=== PATIENT | female | born 1970 | race Caucasian/White ===

== ENCOUNTER 2016-10-01 22:52 | Inpatient (IN) | payer MEDICAID ==
[~2016-10-01] VITALS: Ht 170.2 cm; Wt 86.0 kg
--- OUTSIDE RECORDS SUMMARY | 2016-10-01 22:56 | XMS REPORT ---
Author Author [facility]. Organization [facility] Address [address] [place] [address] Phone [phone] Summary purpose CCDA Sent to [facility] Chief Complaint and Reason for Visit No authorized Reason for Visit (Admitting Diagnosis) is available for this visit. Problem list Condition Status Certainty Chronicity Onset .Asthma Discharged Encounters The following conditions tracked for encounter diagnoses were recorded for this visit: Finding or Diagnosis Status Certainty Chronicity Onset .Asthma Discharged Medications Home Medications Medication Directions Started Status Source albuterol 90 mcg/actuation aerosol inhaler 1-2 inhalation inhl See medication notes xpath-functions" xmlns:xs="http://www.Kidaro.org/2000/XMLSchema" />1-2 puffs q 4-6 hrs prn Current DuoNeb 0.5 mg-3 mg(2.5 mg base)/3 mL solution for nebulization 1 inhalation inhl See medication notes xpath-functions" xmlns:xs="http://www.Kidaro.org/2000/XMLSchema" />one dose per nebulizer q 4 hrs prn Current albuterol 90 mcg/actuation aerosol inhaler inhl As needed xpath-functions" xmlns:xs="http://www.Kidaro.org/2000/XMLSchema" />1-2 puffs q 4-6 hrs prn Discont DuoNeb 0.5 mg-3 mg(2.5 mg base)/3 mL solution for nebulization inhl As needed xpath-functions" xmlns:xs="http://www.Kidaro.org/2000/XMLSchema" />one dose per nebulizer q 4 hrs prn Discont Breo Ellipta 100 mcg-25 mcg/dose powder for inhalation 1 puff inhl -Daily Current predniSONE 10 mg tablet 6 tablet oral See medication notes xpath-functions" xmlns:xs="http://www.Kidaro.org/2000/XMLSchema" />for four days Current predniSONE 10 mg tablet 4 tablet oral -Daily xpath-functions" xmlns:xs="http://www.Kidaro.org/XMLSchema" />for 4 days Current predniSONE 10 mg tablet 3 tablet oral -Daily xpath-functions" xmlns:xs="http://www.Kidaro.org/XMLSchema" />take for 4 days Current predniSONE 10 mg tablet 2 tablet oral -Daily xpath-functions" xmlns:xs="http://www.Kidaro.org/XMLSchema" />for four days Current predniSONE 10 mg tablet 1 tablet oral -Daily xpath-functions" xmlns:xs="http://www.Kidaro.org/XMLSchema" />for 4 days then stop. Take with breakfast Current Allergies, adverse reactions, alerts Allergen Category Ingredient Status Reaction Severity Onset No Allergy Information Available Drug No Allergy Information Available Inactive No Known Drug Allergy No Known Drug Allergy No Known Drug Allergy Active No Known Food Allergy No Known Food Allergy No Known Food Allergy Active Immunizations No immunizations recorded for this patient visit Relevant diagnostic tests and/or laboratory data RESULTS [id number]:55:00 Discharge Summary Pt admitted with refractory asthma - responded to IV solumedrol and albuterol, slowly improving over two days. She was changed to po prednisone, and on the day of discharge, had been weaned off of O2, maintaining sats in the 90's % on RA. She was ambulatory without resp distress. She had only a few wheezes on rt lung. Requested dismissal, and was dismissed to home - see instructions. CBC [id number]:45:00 Result Normal Range Units WBC HC 32.86 4.8-10.8 x103/mm3 Result Amended on 2015-06-01 at 15:47:42. Previous status was FR. CALLED TO A[facility]H 06/01/15 07:10 MAC Neutrophil % HC 93.7 50-70 % Result Amended on 2015-06-01 at 15:47:43. Previous status was FR. CALLED TO ASH[place]OSH 06/01/15 07:10 MAC Lymph % L 3.6 20-50 % Result Amended on 2015-06-01 at 15:47:43. Previous status was FR. [place] % 2.6 1.0-9.0 % Result Amended on 2015-06-01 at 15:47:43. Previous status was FR. Eosinophil % 0.0 0-4 % Result Amended on 2015-06-01 at 15:47:43. Previous status was FR. Basophil % 0.1 0-2 % Result Amended on 2015-06-01 at 15:47:43. Previous status was FR. Neutrophil # H 30.82 3.0-7.0 x103/mm3 Result Amended on 2015-06-01 at 15:47:43. Previous status was FR. Lymph # 1.17 1.0-4.0 x103/mm3 Result Amended on 2015-06-01 at 15:47:43. Previous status was FR. [place] # H 0.84 0.0-0.8 x103/mm3 Result Amended on 2015-06-01 at 15:47:43. Previous status was FR. Eosinophil # 0.00 0-0.5 x103/mm3 Result Amended on 2015-06-01 at 15:47:43. Previous status was FR. Basophil # 0.03 0-0.2 x103/mm3 Result Amended on 2015-06-01 at 15:47:43. Previous status was FR. RBC 5.00 4.20-5.40 x103/mm3 Result Amended on 2015-06-01 at 15:47:43. Previous status was FR. HGB 14.7 12.0-16.0 g/dl Result Amended on 2015-06-01 at 15:47:43. Previous status was FR. HCT 44.4 37.0-47.0 % Result Amended on 2015-06-01 at 15:47:43. Previous status was FR. MCV 88.8 81-99 FL Result Amended on 2015-06-01 at 15:47:43. Previous status was FR. MCH 29.4 27.0-31.0 pg Result Amended on 2015-06-01 at 15:47:43. Previous status was FR. MCHC 33.1 32.0-36.0 g/dl Result Amended on 2015-06-01 at 15:47:43. Previous status was FR. RDW 14.2 12-15 % Result Amended on 2015-06-01 at 15:47:43. Previous status was FR. Platelet 363 150-400 x103/mm3 Result Amended on 2015-06-01 at 15:47:44. Previous status was FR. MPV 9.7 6.0-10.0 FL Result Amended on 2015-06-01 at 15:47:44. Previous status was FR. :30:00 WBC HC 27.85 CALLED TO CELESTINE AT 07;55 05-31-15 BY LAD Neutrophil % HC 97.8 CALLED TO CELESTINE AT 07;55 05-31-15 BY LAD Lymph % L 1.6 [place] % L 0.5 Eosinophil % 0.0 Basophil % 0.1 Neutrophil # H 27.23 Lymph # L 0.45 [place] # 0.13 Eosinophil # 0.01 Basophil # 0.03 RBC 5.35 HGB 15.7 HCT 46.1 MCV 86.2 MCH 29.3 MCHC 34.1 RDW 13.8 Platelet 370 MPV 9.5 :25:00 WBC HC 16.61 CALLED TO [facility] AT [id number] BY LAD Neutrophil % HC 94.5 CALLED TO [facility] AT [id number] BY LAD Lymph % L 3.6 [place] % 1.0 Eosinophil % 0.7 Basophil % 0.2 Neutrophil # H 15.71 Lymph # L 0.59 [place] # 0.16 Eosinophil # 0.12 Basophil # 0.03 RBC H 5.44 HGB 15.8 HCT H 47.1 MCV 86.6 MCH 29.0 MCHC 33.5 RDW 14.1 Platelet 361 MPV 9.3 Manual Differential :45:00 Seg 90.0 Lymph 5.0 [place] 3.0 Bands 2.0 :25:00 Seg 90.0 Lymph 4.0 Bands 6.0 Chemistry Group :45:00 Sodium 136 Potassium 4.5 Chloride 101 CO2 29 Glucose H 148 BUN 16 Creatinine L .6 Calcium 9.6 :30:00 Sodium 135 Potassium 4.0 Chloride 102 CO2 24 Glucose H 168 BUN 9 Creatinine L .6 Calcium 9.3 :25:00 Sodium 139 Potassium 4.2 Chloride 103 CO2 24 Glucose H 152 BUN L 6 Creatinine L .6 Total Protein 7.2 Albumin 4.2 Calcium 9.5 Alk Phos 98 AST 21 ALT 41 T Bili .8 A/G Ratio 1.4 History of procedures No procedures recorded for this patient visit. Functional status Functional Status Finding Observation Time Dexterity Right-handed :41 Weight Bearing Statu Full :45 Transferring/Ambulat Independent :41 Bathing Independent :41 Dressing Independent :41 Eating Independent :41 Drinking Independent :41 Toileting Independent :41 Able to Turn Self in Independent :41 Stairs Independent :41 Cognitive Status Finding Observation Time Level of Consciousne Alert :14 Oriented to Person Yes :[address] Yes :14 Oriented to Time Yes :14 Vital signs Type Value Date Respirations 20 :41 Pulse 109 :41 O2 Saturation 92% :41 Systolic Blood Press 119mm/HG :41 Diastolic Blood Pres 83mm/HG :41 Temperature (Fahr) 98.2Degrees :41 Height 67in :41 Weight 185.6LB :41 Social history Type Value Smoking Status CURRENT EVERY DAY SMOKER Treatment Plan Treatment Plan at Dismissed to home - to cont prednisone taper, and cont duoneg, albuterol prn, xpath-functions" xmlns:xs="http://[email or web address].org/2000/Aetel.inc (Droppy)LSchema" />and breo ellipta. She was to start Prilosec as well. F/U in clinic nest week, xpath-functions" xmlns:xs="http://www.Kidaro.org/2000/XMLSchema" />bring peak flow record. Hospital discharge instructions Diet no restrictions Activity Level as tolerated Personal Items Retur none received Med Dispensed by Pro none Follow up with [facility] Appointment Date and 06/07/15 0830 Other Instructions stop smoking, have no cats in the house, do not play with cats, do peak flow before and after aersol treatment each morning, and keep record of results, bring these results to next dr finch. Return or call for any return, increased, or new symptoms, espicially if wheezing returns.
--- OUTSIDE RECORDS SUMMARY | 2016-10-01 22:56 | XMS REPORT ---
Author Author [facility]. Organization [facility] Address [address] [place] [address] Phone [phone] Summary purpose CCDA Sent to [facility] Chief Complaint and Reason for Visit No authorized Reason for Visit (Admitting Diagnosis) is available for this visit. Problem list Condition Status Certainty Chronicity Onset .Asthma Active Encounters The following conditions tracked for encounter diagnoses were recorded for this visit: Finding or Diagnosis Status Certainty Chronicity Onset .Asthma Active Medications Home Medications Medication Directions Started Status Source albuterol (refill) 90 mcg/actuation aerosol inhaler 1 puff inhl As needed Current Allergies, adverse reactions, alerts Allergen Category Ingredient Status Reaction Severity Onset No Allergy Information Available Drug No Allergy Information Available Inactive No Known Drug Allergy No Known Drug Allergy No Known Drug Allergy Active Immunizations No immunizations recorded for this patient visit Relevant diagnostic tests and/or laboratory data No authorized results are available for this patient visit History of procedures No procedures recorded for this patient visit. Functional status Functional Status Finding Observation Time Weight Bearing Statu Full [id number]:58 Transferring/Ambulat Independent 22-42-613598:55 Eating Independent 19-51-958320:55 Drinking Independent 46-72-012726:55 Cognitive Status Finding Observation Time Level of Consciousne Alert :24 Oriented to Person Yes :[address] Yes [id number]:24 Oriented to Time Yes :24 Vital signs Type Value Date Respirations 24 :26 Pulse 106 :26 O2 Saturation 92% :26 Systolic Blood Press 135mm/HG :26 Diastolic Blood Pres 90mm/HG :26 Temperature (Fahr) 98.1Degrees :26 Height 67in :25 Weight 178.7LB 72-54-082585:25 Social history Type Value Smoking Status CURRENT EVERY DAY SMOKER Treatment Plan No treatment plan text is available for this visit. Hospital discharge instructions Diagnosis Status Asthmaticus Diet As tolerated, no restrictions Activity Level As tolerated Med Dispensed by Pro Prednisone 60mg daily Flu Vaccine Given Pt Refused (specify) Follow up with Dr. Yi Appointment Date and 1 week
--- OUTSIDE RECORDS SUMMARY | 2016-10-01 22:56 | XMS REPORT | Continuity of Care Document ---
Author Author [facility] Organization [facility] Address Unknown Phone Unavailable Allergies Active Description Code Type Severity Reaction Onset Reported/Identified Relationship to Patient Clinical Status Yes No Allergy Information Available 143 Drug Allergy N/A N/A 08/07/2013 Confirmed but inactive Yes No Known Allergies [id number] Drug Allergy N/A N/A 03/19/2014 Confirmed but inactive Yes No Known Drug Allergy [id number] ND N/A N/A 08/16/2014 Confirmed or Verified Yes No Known Food Allergy NO KNOWN FOOD ALLERG NF N/A N/A 05/30/2015 Confirmed or Verified Medications Problems Date Dx Coded Attending Type Code Diagnosis Diagnosed By 08/07/2013 ASHVIN FAUSTIN, ALEC Sullivan 486 PNEUMONIA, ORGANISM NOS 03/21/2014 ISAIAH GRAJEDA MD, ROGELIO Sullivan 493.92 ASTHMA, UNSPECIFIED, WIT 08/18/2014 PATRICK SAM MD 493.01 EXT ASTHMA W STATUS ASTH 08/18/2014 PATRICK SAM MD 493.90 ASTHMA, UNSPECIFIED 08/18/2014 PATRICK SAM MD 799.02 HYPOXEMIA 12/10/2014 JOSH MARQUEZ MD 289.0 SECONDARY POLYCYTHEMIA 12/10/2014 JOSH MARQUEZ MD 305.1 TOBACCO USE DISORDER 12/10/2014 JOSH MARQUEZ MD 493.01 EXT ASTHMA W STATUS ASTH 12/10/2014 JOSH MARQUEZ MD 799.02 HYPOXEMIA 12/10/2014 JOSH MARQUEZ MD V65.49 OTH SPECIFIED COUNSELING 06/01/2015 JOSH MARQUEZ MD J44.9 Chronic obstructive pulmonary disease, unspecified 06/01/2015 JOSH MARQUEZ MD J45.909 Unspecified asthma, uncomplicated 06/01/2015 JOSH MARQUEZ MD K21.9 Gastro-esophageal reflux disease without esophagitis 06/01/2015 JOSH MARQUEZ MD Z71.6 Tobacco abuse counseling 06/01/2015 JOSH MARQUEZ MD Z72.0 Tobacco use Procedures Code Description [place] [address] CHEST X-RAY ALEC LOCK MD 08/07/2013 09034 EMERGENCY DEPT VISIT ALEC LOCK MD 08/07/2013 65053 THER/PROPH/DIAG IV INF, INIT FLACO FAUSTIN, [facility] [place] 08/16/2014 93410 TX/PROPH/DG ADDL SEQ IV INF FLACO FAUSTIN, [facility] 08/16/2014 16258 TX/PRO/DX INJ NEW DRUG MENDELON FLACO FAUSTIN, [facility] 08/16/2014 13002 EMERGENCY DEPT VISIT FLACO FAUSTIN [facility] [place] 08/16/2014 G0378 HOSPITAL OBSERVATION PER HR FLACO FAUSTIN, [facility] 08/16/2014 02353 THER/PROPH/DIAG IV INF MENDELON FLACO FAUSTIN, [facility] 08/17/2014 60183 TX/PRO/DX INJ NEW DRUG FRAME NAILEREDUARDO SAM MD, [facility] 08/17/2014 J0696 CEFTRIAXONE SODIUM INJECTION FLACO FAUSTIN, [facility] 08/17/2014 J2930 METHYLPREDNISOLONE INJECTION FLACO FAUSTIN, [facility] 08/17/2014 J3475 MAG INJECTION FLACO FAUSTIN, [facility] 08/17/2014 J7050 NS SOLUTION 250 CC INFUSION FLACO FAUSTIN, [facility] 08/17/2014 Results Test Result Range CBC - 03/19/14 09:45 Eos # 0.14 x10^3 0-0.5 Eos % 1.0 % 0-4 HCT 45.3 % 37.0-47.0 HGB 15.7 G/DL 12.0-16.0 Lymph 3.0 Lymph # 0.51 x10^3 1.0-4.0 Lymph % 3.6 % 20-50 MCH 30.4 PG 27.0-31.0 MCHC 34.7 G/DL 32.0-36.0 MCV 87.8 FL 81-[address] [place] [address] [place] # 0.14 x10^3 0.0-0.8 [place] % 1.0 % 1.0-9.0 MPV 9.6 FL 6.0-10.0 Platelet 314 x10^3 150-400 RBC 5.16 x10^3 4.20-5.40 RDW 13.5 % 12-15 Seg 81.0 WBC 14.18 x10^3 4.8-10.8 Bands 13.0 Baso # 0.02 x10^3 0-0.2 Baso % 0.1 % 0-2 Neut % 94.3 % 50-70 Neut # 13.37 x10^3 3.0-7.0 Comprehensive Metabolic Panel - 03/19/14 09:45 Sodium 138 MMOLL 134-145 Potassium 3.3 MMOLL 3.6-5.0 Chloride 100 MMOLL 98-107 CO2 22 MMOLL 22-30 Glucose 204 MG/DL 75-110 BUN 5 MG/DL 9-20 Creatinine .6 MG/DL 0.8-1.7 Calcium 9.0 MG/DL 8.4-10.2 T Bili .6 MG/DL 0.2-1.3 T. Protein 7.6 G/DL 6.3-8.2 A/G Ratio 1.3 RATIO Albumin 4.3 G/DL 3.5-5.0 Alk Phos 75 U/L 38-126 ALT 28 U/L 11-66 AST 25 U/L 14-36 CBC - 12/09/14 19:21 Eos # 0.80 x10^3 0-0.5 Eos % 7.5 % 0-4 HCT 50.8 % 37.0-47.0 HGB 17.6 G/DL 12.0-16.0 Lymph # 2.03 x10^3 1.0-4.0 Lymph % 19.1 % 20-50 MCH 30.2 PG 27.0-31.0 MCHC 34.6 G/DL 32.0-36.0 MCV 87.3 FL 81-99 [place] # 0.60 x10^3 0.0-0.8 [place] % 5.6 % 1.0-9.0 MPV 9.7 FL 6.0-10.0 Platelet 396 x10^3 150-400 RBC 5.82 x10^3 4.20-5.40 RDW 13.5 % 12-15 WBC 10.63 x10^3 4.8-10.8 Baso # 0.08 x10^3 0-0.2 Baso % 0.8 % 0-2 Neut % 67.0 % 50-70 Neut # 7.12 x10^3 3.0-7.0 Basic Metabolic Panel - 12/09/14 19:21 Sodium 138 MMOLL 134-145 Potassium 4.3 MMOLL 3.6-5.0 Chloride 103 MMOLL 98-107 CO2 20 MMOLL 22-30 Glucose 128 MG/DL 75-110 BUN 9 MG/DL 9-20 Creatinine .7 MG/DL 0.8-1.7 Calcium 9.8 MG/DL 8.4-10.2 CBC - 05/30/15 17:47 Eos # 0.12 x10^3 0-0.5 Eos % 0.7 % 0-4 HCT 47.1 % 37.0-47.0 HGB 15.8 G/DL 12.0-16.0 Lymph 4.0 Lymph # 0.59 x10^3 1.0-4.0 Lymph % 3.6 % 20-50 MCH 29.0 PG 27.0-31.0 MCHC 33.5 G/DL 32.0-36.0 MCV 86.6 FL 81-99 [place] # 0.16 x10^3 0.0-0.8 [place] % 1.0 % 1.0-9.0 MPV 9.3 FL 6.0-10.0 Platelet 361 x10^3 150-400 RBC 5.44 x10^3 4.20-5.40 RDW 14.1 % 12-15 Seg 90.0 WBC 16.61 x10^3 4.8-10.8 Bands 6.0 Baso # 0.03 x10^3 0-0.2 Baso % 0.2 % 0-2 Neut % 94.5 % 50-70 Neut # 15.71 x10^3 3.0-7.0 Comprehensive Metabolic Panel - 05/30/15 17:47 Sodium 139 MMOLL 134-145 Potassium 4.2 MMOLL 3.6-5.0 Chloride 103 MMOLL 98-107 CO2 24 MMOLL 22-30 Glucose 152 MG/DL 75-110 BUN 6 MG/DL 9-20 Creatinine .6 MG/DL 0.8-1.7 Calcium 9.5 MG/DL 8.4-10.2 T Bili .8 MG/DL 0.2-1.3 T. Protein 7.2 G/DL 6.3-8.2 A/G Ratio 1.4 RATIO Albumin 4.2 G/DL 3.5-5.0 Alk Phos 98 U/L 38-126 ALT 41 U/L 11-66 AST 21 U/L 14-36 Basic Metabolic Panel - 05/31/15 07:53 Sodium 135 MMOLL 134-145 Potassium 4.0 MMOLL 3.6-5.0 Chloride 102 MMOLL 98-107 CO2 24 MMOLL 22-30 Glucose 168 MG/DL 75-110 BUN 9 MG/DL 9-20 Creatinine .6 MG/DL 0.8-1.7 Calcium 9.3 MG/DL 8.4-10.2 CBC - 05/31/15 07:55 Eos # 0.01 x10^3 0-0.5 Eos % 0.0 % 0-4 HCT 46.1 % 37.0-47.0 HGB 15.7 G/DL 12.0-16.0 Lymph # 0.45 x10^3 1.0-4.0 Lymph % 1.6 % 20-50 MCH 29.3 PG 27.0-31.0 MCHC 34.1 G/DL 32.0-36.0 MCV 86.2 FL 81-99 [place] # 0.13 x10^3 0.0-0.8 [place] % 0.5 % 1.0-9.0 MPV 9.5 FL 6.0-10.0 Platelet 370 x10^3 150-400 RBC 5.35 x10^3 4.20-5.40 RDW 13.8 % 12-15 WBC 27.85 x10^3 4.8-10.8 Baso # 0.03 x10^3 0-0.2 Baso % 0.1 % 0-2 Neut % 97.8 % 50-70 Neut # 27.23 x10^3 3.0-7.0 CBC - 06/01/15 07:45 Eos # 0.00 x10^3 0-0.5 Eos % 0.0 % 0-4 HCT 44.4 % 37.0-47.0 HGB 14.7 G/DL 12.0-16.0 Lymph 5.0 Lymph # 1.17 x10^3 1.0-4.0 Lymph % 3.6 % 20-50 MCH 29.4 PG 27.0-31.0 MCHC 33.1 G/DL 32.0-36.0 MCV 88.8 FL 81-[address] [place] [address] [place] # 0.84 x10^3 0.0-0.8 [place] % 2.6 % 1.0-9.0 MPV 9.7 FL 6.0-10.0 Platelet 363 x10^3 150-400 RBC 5.00 x10^3 4.20-5.40 RDW 14.2 % 12-15 Seg 90.0 WBC 32.86 x10^3 4.8-10.8 Bands 2.0 Baso # 0.03 x10^3 0-0.2 Baso % 0.1 % 0-2 Neut % 93.7 % 50-70 Neut # 30.82 x10^3 3.0-7.0 Basic Metabolic Panel - 06/01/15 07:23 Sodium 136 MMOLL 134-145 Potassium 4.5 MMOLL 3.6-5.0 Chloride 101 MMOLL 98-107 CO2 29 MMOLL 22-30 Glucose 148 MG/DL 75-110 BUN 16 MG/DL 9-20 Creatinine .6 MG/DL 0.8-1.7 Calcium 9.6 MG/DL 8.4-10.2 Encounters ACCT No. Visit Date/Time Discharge Status Pt. Type Provider Facility Loc./Unit Complaint [id number] 05/30/2015 17:07:00 06/01/2015 20:45:00 DIS Inpatient JIMMY FAUSTIN, [facility] NS1 [id number] 12/09/2014 19:02:00 12/10/2014 00:42:00 DIS Inpatient JIMMY FAUSTIN, [facility] NS1 [id number] 08/16/2014 22:40:00 08/18/2014 13:39:00 DIS Outpatient FLACO FAUSTIN, PATRICK [facility] NS1 [id number] 03/20/2014 14:57:00 03/21/2014 14:00:00 DIS Inpatient ISAIAH GRAJEDA MD, [facility] NS1 [id number] 08/07/2013 16:23:00 08/07/2013 18:04:00 DIS Emergency ASHVIN FAUSTIN, [facility] ER
--- OUTSIDE RECORDS SUMMARY | 2016-10-01 22:56 | XMS REPORT ---
Author Author [facility]. Organization [facility] Address [address] [place] [address] Phone [phone] Summary purpose CCDA Sent to [facility] Chief Complaint and Reason for Visit Admit Diagnosis 1 EXT ASTHMA W STATUS ASTH Problem list Condition Status Certainty Chronicity Onset .Asthma Resolved Encounters The following conditions tracked for encounter diagnoses were recorded for this visit: Finding or Diagnosis Status Certainty Chronicity Onset .Asthma Resolved Medications Home Medications Medication Directions Started Status Source albuterol 90 mcg/actuation aerosol inhaler inhl As needed xpath-functions" xmlns:xs="http://www.[employer] Wave Technologiesorg/2000/EltechsLSchema" />1-2 puffs q 4-6 hrs prn Current DuoNeb 0.5 mg-3 mg(2.5 mg base)/3 mL solution for nebulization inhl As needed xpath-functions" xmlns:xs="http://www.[employer] Wave [employer]org/2000/EltechsLSchema" />one dose per nebulizer q 4 hrs prn Current Allergies, adverse reactions, alerts Allergen Category Ingredient Status Reaction Severity Onset No Allergy Information Available Drug No Allergy Information Available Inactive No Known Drug Allergy No Known Drug Allergy No Known Drug Allergy Active Immunizations No immunizations recorded for this patient visit Relevant diagnostic tests and/or laboratory data RESULTS :54:00 Discharge Summary Patient was improved and able to maintain O2sats in the 90's without oxygen. :45:00 Discharge Summary Admitted with hypoxia and status asthmaticus - requiring 4 lpm O2, and repeat albuterol aerosol tx, and IV solumedrol. Pt adamant about dismissal on second evening due to costs - improving. Reviwed disease process, smoking etiology and / worsening of asthma and COPD, as well as polycythemia, and risk for progression to O2 dependency, disability, and . Pt agrees to smoking cessation. Agrees to outpt f/u, as well as self peak flow monitoring. Dismissed - see instructions. CBC :50:00 Result Normal Range Units WBC 10.63 4.8-10.8 x103/mm3 Neutrophil % 67.0 50-70 % Lymph % L 19.1 20-50 % [place] % 5.6 1.0-9.0 % Eosinophil % H 7.5 0-4 % Basophil % 0.8 0-2 % Neutrophil # H 7.12 3.0-7.0 x103/mm3 Lymph # 2.03 1.0-4.0 x103/mm3 [place] # 0.60 0.0-0.8 x103/mm3 Eosinophil # H 0.80 0-0.5 x103/mm3 Basophil # 0.08 0-0.2 x103/mm3 RBC H 5.82 4.20-5.40 x103/mm3 HGB H 17.6 12.0-16.0 g/dl HCT H 50.8 37.0-47.0 % MCV 87.3 81-99 FL MCH 30.2 27.0-31.0 pg MCHC 34.6 32.0-36.0 g/dl RDW 13.5 12-15 % Platelet 396 150-400 x103/mm3 MPV 9.7 6.0-10.0 FL Chemistry Group :50:00 Result Normal Range Units Sodium 138 134-145 mmol/L Potassium 4.3 3.6-5.0 mmol/L Chloride 103 98-107 mmol/L CO2 L 20 22-30 mmol/L Glucose H 128 75-110 mg/dl BUN 9 9-20 mg/dl Creatinine L .7 0.8-1.7 mg/dl Calcium 9.8 8.4-10.2 mg/dl History of procedures No procedures recorded for this patient visit. Functional status Functional Status Finding Observation Time Weight Bearing Statu Full :23 Transferring/Ambulat Independent :09 Eating Independent :09 Drinking Independent :09 Toileting Independent :09 Able to Turn Self in Independent :09 Cognitive Status Finding Observation Time Level of Consciousne Alert :40 Oriented to Person Yes :[address] Yes :40 Oriented to Time Yes :40 Eyes - ROSIE Yes :45 Vital signs Type Value Date Respirations 24 :43 Pulse 108 :43 O2 Saturation 92% :43 Systolic Blood Press 131mm/HG :43 Diastolic Blood Pres 82mm/HG :43 Temperature (Fahr) 98.8Degrees :43 Height 67in :16 Weight 178.2LB :16 Social history Type Value Smoking Status CURRENT EVERY DAY SMOKER Treatment Plan Treatment Plan at Patient desires to return to her home tonight. Instructions given for aerosol xpath-functions" xmlns:xs="http://www.[employer]org/2000/XMLSchema" />treatments and Prednisone dose pack by Dr. Bobby, and a written plan of care was xpath-functions" xmlns:xs="http://www.[employer].org/2000/XMLSchema" />given to patient. Hospital discharge instructions Diagnosis Asthma Diet No restrictions Activity Level As tolerated Personal Items Retur None Med Dispensed by Pro None Follow up with Dr. Bobby Appointment Date and December 16 @ 1:30 Other Instructions STOP SMOKING. Have no cats in the house, and do not play with cats. Do peak flow before and after aerosol treatment each morning, and keep record of results. Bring record to your appt. Call or return for any return, increased, or new symptoms, especially if wheezing returns. Go to the Clinic for lab on December 15 for H&H. You will need further evaluation of your lungs and of your elevated hemoglobin. Do not fail to have these further evaluated.
--- OUTSIDE RECORDS SUMMARY | 2016-10-01 22:56 | XMS REPORT ---
Author Author [facility]. Organization [facility] Address [address] [place] [address] Phone [phone] Summary purpose CCDA Sent to [facility] Chief Complaint and Reason for Visit Admit Diagnosis 1 ASTHMA, UNSPECIFIED Problem list Condition Status Certainty Chronicity Onset [...] for this patient visit History of procedures Procedure Code Code Type Description Date Performed Performing Physician G0378 CPT-4 HOSPITAL OBSERVATION PER HR 08-16-2014 PATRICK SAM 64328 CPT-4 EMERGENCY DEPT VISIT 08-16-2014 PATRICK SAM J2930 CPT-4 METHYLPREDNISOLONE INJECTION 08-17-2014 PATRICK SAM J0696 CPT-4 CEFTRIAXONE SODIUM INJECTION 08-17-2014 PATRICK SAM J7050 CPT-4 NS SOLUTION 250 CC INFUSION 08-17-2014 PATRICK SAM J3475 CPT-4 MAG INJECTION 08-17-2014 PATRICK SAM J2930 CPT-4 METHYLPREDNISOLONE INJECTION 08-17-2014 PATRICK SAM 19031 CPT-4 THER/PROPH/DIAG IV INF, INIT 08-16-2014 PATRICK SAM 27822 CPT-4 THER/PROPH/DIAG IV INF ADDON 08-17-2014 PATRICK SAM 31132 CPT-4 TX/PROPH/DG ADDL SEQ IV INF 08-16-2014 PATRICK SAM 06932 CPT-4 TX/PRO/DX INJ NEW DRUG ADDON 08-16-2014 PATRICK SAM 61512 CPT-4 TX/PRO/DX INJ NEW DRUG FIELD MACHINIST 08-17-2014 PATRICK SAM Functional status Functional Status Finding Observation Time Weight Bearing Statu Full [id number]:58 Transferring/Ambulat Independent 40-65-015114:55 Eating Independent 93-05-304697:55 Drinking Independent 12-03-922670:55 Cognitive Status Finding Observation Time Level of Consciousne Alert :24 Oriented to Person Yes :[address] Yes :24 Oriented to Time Yes :24 Vital signs Type Value Date Respirations 24 :26 Pulse 106 :26 O2 Saturation 92% :26 Systolic Blood Press 135mm/HG :26 Diastolic Blood Pres 90mm/HG :26 Temperature (Fahr) 98.1Degrees :26 Height 67in :25 Weight 178.7LB 18-06-911326:25 Social history Type Value Smoking Status CURRENT [...]
--- NOTE | 2016-10-01 23:11 | NUR ---
RESP RT STAFF IN ROOM ADMINISTERING DUONEB
[2016-10-01] MEDS ORDERED: ALBUTEROL/IPRATROPIUM INHAL. 2.5mg-0.5mg/3ml Neb. AEROSOL ONE ×2 (23:15→23:45)
[2016-10-01] MEDS ORDERED: BRIO INH (23:18)
--- NOTE | 2016-10-01 23:20 | ERPDOC ---
Departure Disposition Decision Date: Oct 02, 2016 Disposition Decision Time: 02:15 Disposition: 02 TO [facility] Impression Impression Impression: Primary Impression: Asthma exacerbation Additional Impression: Hypoxemia requiring supplemental oxygen Severity: Moderate Condition: Stable Seen By: Physician only Problems/Meds/Labs Reviewed?: Yes Medications reviewed and manag: Yes Follow up care ordered?: Yes Mental Status: Alert, Oriented HPI - Respiratory General General Chief Complaint: Dyspnea/Respdistress Stated Complaint: TROUBLE BREATHING,HEAD HURTS Time Seen by Provider: 23:19 Source: patient Exam Limitations: no limitations HPI - Respiratory General Initial Comments Patient is a 46-year-old female presents emergency room for evaluation of headache, difficulty breathing. Patient does have a history of asthma and is on one daily control medication 1 week week ago had no need for rescue inhaler. Patient for the past 2 days has had cough shortness of breath, body aches headache. Patient was seen primary medical physician's office today, given a breathing treatment with improvement of symptoms, it was recommended she come [facility] for influenza test. Patient was unable to obtain a ride until later this evening, patient did come to [facility], however having significant difficulty breathing again, congestion, shortness of breath, headache so patient decided to present to the ER for evaluation. On arrival patient satting 88% on room air placed on 3 L by nasal cannula to maintain O2 sats greater than 90% Occurred At: home Onset: Gradual, Getting worse Duration: other (2 days) Prior Episodes/Possible Cause: occasional episodes Allergies: Coded Allergies: No Known Allergies (Unverified , 10/01/16) Past History Past Medical History Respiratory: asthma Social History Smoking Status: Never smoker Substance Use Type: does not use Alcohol Intake: none Review of Systems Constitutional Constitutional: fever, DENIES: appetite decrease, chills, dizziness, weakness Eyes Vision: DENIES: loss of visual lopes ENMT Sinuses: congestion, rhinorrhea Mouth/Throat: DENIES: scratchy throat, sore throat Cardiovascular Cardiac: dyspnea on exertion, DENIES: chest pain Pulmonary Respiratory: cough, dyspnea, tachypnea, DENIES: sputum GI Upper Abdomen: DENIES: nausea, pain, vomiting Lower Abdomen: DENIES: constipation, diarrhea, pain General: DENIES: frequency, urgency Musculoskeletal General: DENIES: cramps, pain, weakness Integumentary Skin: DENIES: color change, itching, rash Neurological General: headache, DENIES: change in strength, numbness, weakness Endocrine Endocrine: DENIES: heat/cold intolerance Hematologic/Lymphatic Hematologic/Lymphatic: DENIES: anemia Physical Exam General General Nourishment: well nourished, well developed General Body Habitus: well groomed Vitals and Pain First Documented Vital Signs Date Time Temp Pulse Resp B/P Pulse Ox O2 Delivery O2 Flow Rate FiO2 10/01/16 22:52 100.8 122 24 132/75 88 Room Air 10/01/16 23:30 3.00 Weight: Kilograms: 85.600 Height (feet): 5 Height (inches): 7.50 Triage Pain Scale: RN VS reviewed by Provider: Yes Eyes (brief) Eyes Brief: found: EOMI ENMT (brief) ENMT Brief: FOUND: nasal erythema, nasal swelling, normal dentition, NOT FOUND : mucosa moist, pharnyx erythema Neck (brief) Neck: NOT FOUND: adenopathy, spasm, tenderness Respiratory Inspection: NOT FOUND: audible stridor, audible wheezing, hyperpnea, periodic breathing, prolonged expiration, tachypnea Auscultation: FOUND: decreased, wheezes, NOT FOUND: rales, rhonchi Cardiovascular (brief) Cardiac: FOUND: regular rate, regular rhythm Capillary Refill: <2 sec Abdomen (brief) Abdominal Brief: FOUND: bowel normo active x4, soft, NOT FOUND: distended, tender Lymphatic (brief) Lymphatic Brief: NOT FOUND: adenopathy Musculoskeletal (brief) Musculoskeletal Brief: NOT FOUND: spasm, tenderness Integumentary (brief) Integumentary Brief: FOUND: dry, pink, warm, NOT FOUND: rash Neurologic (brief) Neurological Brief: FOUND: CN w/o gross def to obs, motor-no gross deficits, sensory-no gross deficits Psychiatric (brief) Psychiatric Brief: FOUND: alert, oriented Differential Diagnoses Differential Diagnoses Considering: Acute Bronchitis, Acute Respiratory Failure, Asthma Exacerbation, CHF, COPD Exacerbation, Costochondritis, Pneumonia, Pneumothorax, Pulmonary Edema, Sinusitis, Viral Syndrome Progress Results/Orders Orders Procedure Category Date Status Time Albuterol/Ipratropium PHA 10/01/16 Complete (Duoneb) 23:15 Methylprednisolone PHA 10/01/16 Complete Sod Succ (Solu-Medrol 23:45 Chest, Pa & Lateral RAD 10/01/16 Taken 23:31 Influenza A/B Screen LAB 10/01/16 Complete 23:31 Albuterol/Ipratropium PHA 10/01/16 Complete (Duoneb) 23:45 Levalbuterol (Xopenex PHA 10/02/16 Complete 1.25mg/3ml) 00:45 Iv Lock (Ed Only) EDM 10/02/16 Transmitted 01:32 Cbc W/Auto LAB 10/02/16 Complete Diff-Reflex Manual 01:32 Cmp - Comprehensive LAB 10/02/16 Complete Metabolic 01:32 Lab Results Laboratory Tests Test 10/01/16 23:47 10/02/16 01:42 Influenza Type A Antigen Negative Influenza Type B Antigen Negative White Blood Count 17.5T/MM3 Red Blood Count 5.30M/MM3 Hemoglobin 15.4GM/DL Hematocrit 46.2% Mean Corpuscular Volume 87.2UM3 Mean Corpuscular Hemoglobin 29.1UUG Mean Corpuscular Hemoglobin Concent 33.3GM/DL RDW Standard Deviation 45.1FL Platelet Count 344T/MM3 Mean Platelet Volume 9.7UM3 Immature Granulocyte % (Auto) % Neutrophils (%) (Auto) % Lymphocytes (%) (Auto) % Monocytes (%) (Auto) % Eosinophils (%) (Auto) % Basophils (%) (Auto) % Absolute Immature Granulocyte (auto T/MM3 Absolute Neutrophils (auto) T/MM3 Absolute Lymphocytes (auto) T/MM3 Absolute Monocytes (auto) T/MM3 Absolute Eosinophils (auto) T/MM3 Absolute Basophils (auto) T/MM3 Neutrophils % (Manual) 92.0% Band Neutrophils % 3.0% Lymphocytes % (Manual) 5.0% Absolute Neutrophils (Manual) 16.1T/MM3 Band Neutrophils # 0.5T/MM3 Lymphocytes # (Manual) 0.9T/MM3 Red Cell Morphology Comment Normal Turbidity < 20 Sodium Level 136MEQ/L Potassium Level 3.7MEQ/L Chloride Level 100MEQ/L Carbon Dioxide Level 23MEQ/L Anion Gap 13MEQ/L Blood Urea Nitrogen 7.0MG/DL Creatinine 0.6MG/DL Glomerular Filtration Rate Calc 109 BUN/Creatinine Ratio 12RATIO Glucose Level 183MG/DL Calculated Osmolality 265MOSM/KG Calcium Level 9.8MG/DL Total Bilirubin 1.60MG/DL Icterus Index < 2 Aspartate Amino Transf (AST/SGOT) 105U/L Alanine Aminotransferase (ALT/SGPT) 164U/L Alkaline Phosphatase 136U/L Total Protein 8.2G/DL Albumin 4.3G/DL Globulin 3.9G/DL Albumin/Globulin Ratio 1.1RATIO Chemistry Specimen Hemolysis 22 Medications Current ED Medications Albuterol/ Ipratropium (Duoneb) 3 ml O ONCE AEROSOL Last administered on 23:12; Start 10/01/16 at 23:15; Stop 10/01/16 at 23:16; Status DC Methylprednisolone Sodium Succinate (Solu-Medrol) 125 mg O ONCE IM Last administered on 10/01/16 23:42; Start 10/01/16 at 23:45; Stop 10/01/16 at 23:46 ; Status DC Albuterol/ Ipratropium (Duoneb) 3 ml O ONCE AEROSOL Last administered on 23:41; Start 10/01/16 at 23:45; Stop 10/01/16 at 23:46; Status DC Levalbuterol HCl (XOPENEX 1.25mg/ 3ml) 1.25 mg O ONCE AEROSOL Last administered on 10/02/16 00:46; Start 10/02/16 at 00:45; Stop 10/02/16 at 00:46 ; Status DC Progress Progress Patient continues to require 3 L by nasal cannula to maintain time oxygen saturations to site Solu-Medrol and breathing treatments. Discuss case with Dr. Rodriguez will admit asthma exacerbation Xray Xray : Xray: CXR PA/Lat Interpretation: Normal, Interpreted by Me (no acute cardiopulmonary findings ) TANJA ELLISON MD Oct 01, 2016 23:20
--- NOTE | 2016-10-01 23:50 | NUR ---
status 2nd duoneb is completed. flu screen collected and sent to lab
--- OUTSIDE RECORDS SUMMARY | 2016-10-01 23:59 | XMS REPORT | Continuity of Care Document ---
Author Author [facility] Organization [facility] Address Unknown Phone Unavailable Allergies Active Description Code Type Severity Reaction Onset Reported/Identified Relationship to Patient Clinical Status Yes No Allergy Information Available 143 Drug Allergy N/A N/A 08/07/2013 Confirmed but inactive Yes No Known Allergies [id number] Drug Allergy N/A N/A 03/19/2014 Confirmed but inactive Yes No Known Drug Allergy [id number] ND N/A N/A 08/16/2014 Confirmed or Verified [...] Procedures Code [place] [address] CHEST X-RAY ALEC LOCK MD 08/07/2013 72053 EMERGENCY DEPT VISIT ALEC LOCK MD 08/07/2013 92698 THER/PROPH/DIAG IV INF, INIT FLACO FAUSTIN, [facility] [place] 08/16/2014 45961 TX/PROPH/DG ADDL SEQ IV INF FLACO FAUSTIN, [facility] 08/16/2014 47456 TX/PRO/DX INJ NEW DRUG MENDELON FLACO FAUSTIN, [facility] 08/16/2014 43163 EMERGENCY DEPT VISIT FLACO FAUSTIN [facility] [place] 08/16/2014 G0378 HOSPITAL OBSERVATION PER HR FLACO FAUSTIN, [facility] 08/16/2014 71158 THER/PROPH/DIAG IV INF MENDELON FLACO FAUSTIN, [facility] 08/17/2014 68426 TX/PRO/DX INJ NEW DRUG DICTAPHONE MECHANICEDUARDO SAM MD, [facility] 08/17/2014 J0696 CEFTRIAXONE SODIUM INJECTION FLACO FAUSTIN, [facility] 08/17/2014 J2930 METHYLPREDNISOLONE INJECTION FLACO FAUSTIN, [facility] 08/17/2014 J3475 MAG INJECTION FLACO FAUSTIN, [facility] 08/17/2014 J7050 NS SOLUTION 250 CC INFUSION FLACO FAUSTIN, [facility] 08/17/2014 Results Test Result Range CBC - 03/19/14 09:45 Eos # 0.14 x10^3 0-0.5 Eos % 1.0 % 0-4 HCT 45.3 % 37.0-47.0 HGB 15.7 G/DL 12.0-16.0 Lymph 3.0 Lymph # 0.51 x10^3 1.0-4.0 Lymph % 3.6 % 20-50 MCH 30.4 PG 27.0-31.0 MCHC 34.7 G/DL 32.0-36.0 MCV 87.8 [place] 81-[address] [place] [address] [place] # 0.14 x10^3 0.0-0.8 [place] % 1.0 % 1.0-9.0 MPV 9.6 FL [...] G/DL 32.0-36.0 MCV 87.3 [place] 81-99 [place] # 0.60 x10^3 0.0-0.8 [place] % 5.6 % 1.0-9.0 MPV 9.7 FL [...] G/DL 32.0-36.0 MCV 86.6 [place] 81-99 [place] # 0.16 x10^3 0.0-0.8 [place] % 1.0 % 1.0-9.0 MPV 9.3 FL [...] G/DL 32.0-36.0 MCV 86.2 [place] 81-99 [place] # 0.13 x10^3 0.0-0.8 [place] % 0.5 % 1.0-9.0 MPV 9.5 FL [...] G/DL 32.0-36.0 MCV 88.8 [place] 81-[address] [place] [address] [place] # 0.84 x10^3 0.0-0.8 [place] % 2.6 % 1.0-9.0 MPV 9.7 FL [...] Status Pt. Type Provider Facility Loc./Unit Complaint [id number] 05/30/2015 17:07:00 06/01/2015 20:45:00 DIS Inpatient JIMMY FAUSTIN, [facility] NS1 [id number] 12/09/2014 19:02:00 12/10/2014 00:42:00 DIS Inpatient JIMMY FAUSTIN, [facility] NS1 [id number] 08/16/2014 22:40:00 08/18/2014 13:39:00 DIS Outpatient FLACO FAUSTIN, PATRICK [facility] NS1 [id number] 03/20/2014 14:57:00 03/21/2014 14:00:00 DIS Inpatient ISAIAH GRAJEDA MD, [facility] NS1 [id number] 08/07/2013 16:23:00 08/07/2013 18:04:00 DIS Emergency ASHVIN FAUSTIN, [facility] ER
[2016-10-02] VITALS (11 sets, daily range): BP systolic 106–136; BP diastolic 57–80; PULSE 86–102; RESP 20–24; TEMP 96.1–99.7; O2SAT 90–95; Ht 170.2 cm; Wt 86.0 kg
[2016-10-02 00:15] LABS: INFLUENZA A AG SCREEN NEGATIVE (NEGATIVE); INFLUENZA B AG SCREEN NEGATIVE (NEGATIVE)
[2016-10-02] MEDS ORDERED: LEVALBUTEROL INH.SOLN. 1.25mg/3ml Neb. AEROSOL ONE (00:45)
--- NOTE | 2016-10-02 01:05 | NUR ---
STATUS ATTEMPTED PT ON ROOM. AIR. PT DROPS TO 86% ON ROOM AIR. PT IS PLACED BACK ON 2L/NC AND HER SATS IMPROVE
[2016-10-02 01:49] LABS: HCT - HEMATOCRIT 46.2 % (36-46); HGB - HEMOGLOBIN 15.4 GM/DL (12-16); MEAN CORPUSCULAR HGB 29.1 UUG (26-34); MEAN CORPUSCULAR HGB CONC(MCHC 33.3 GM/DL (31-37); MEAN CORPUSCULAR VOLUME 87.2 UM3 (80-100); MEAN PLATELET VOLUME 9.7 UM3 (9.4-12.4); WBC - WHITE BLOOD COUNT 17.5 T/MM3 (4.5-11.0)
[2016-10-02 02:00] LABS: ALBUMIN 4.3 G/DL (3.5-5.0); ALBUMIN/GLOBULIN RATIO 1.1 RATIO (1.1-2.2); ALKALINE PHOSPHATASE 136 U/L (38-126); ALT (SGPT) 164 U/L (9-52); ANION GAP 13 MEQ/L (5-15); AST (SGOT) 105 U/L (14-36); BUN/CREATININE RATIO 12 RATIO (6-26); CALCIUM 9.8 MG/DL (8.4-10.2); CHLORIDE 100 MEQ/L (98-107); CO2 - CARBON DIOXIDE 23 MEQ/L (22-30); CREATININE 0.6 MG/DL (0.7-1.2); GLOMERULAR FILTRATION RATE 109; GLUCOSE 183 MG/DL (65-110); POTASSIUM 3.7 MEQ/L (3.6-5); SODIUM 136 MEQ/L (134-144); TOTAL PROTEIN 8.2 G/DL (6.3-8.2)
--- NOTE | 2016-10-02 02:00 | NUR ---
status pt is ambulated to the bathroom with o2 on. pt reports feeling better and coughing more phlemn. pt still requiring o2.
[2016-10-02 02:02] LABS: BAND NEUTROPHILS # 0.5 T/MM3; LYMPHOCYTES # (MANUAL) 0.9 T/MM3 (1-4.8); NEUTROPHILS #(MANUAL)-ABSOLUTE 16.1 T/MM3 (1.8-7.7); TOTAL CELLS COUNTED 100 %
[2016-10-02] MEDS ORDERED: ALBUTEROL/IPRATROPIUM INHAL. 2.5mg-0.5mg/3ml Neb. AEROSOL PRN (02:15)
--- OUTSIDE RECORDS SUMMARY | 2016-10-02 02:22 | XMS REPORT | Continuity of Care Document ---
Author Author [facility] Organization [facility] Address Unknown Phone Unavailable Allergies Active Description Code Type Severity Reaction Onset Reported/Identified Relationship to Patient Clinical Status Yes No Allergy Information Available 143 Drug Allergy N/A N/A 08/07/2013 Confirmed but inactive Yes No Known Allergies [id number] Drug Allergy N/A N/A 03/19/2014 Confirmed but inactive Yes No Known Drug Allergy [id number] ND N/A N/A 08/16/2014 Confirmed or Verified [...] Procedures Code Description [place] [address] CHEST X-RAY ALEC LOCK MD 08/07/2013 10003 EMERGENCY DEPT VISIT ALEC LOCK MD 08/07/2013 76527 THER/PROPH/DIAG IV INF, INIT FLACO FAUSTIN, [facility] [place] 08/16/2014 25034 TX/PROPH/DG ADDL SEQ IV INF FLACO FAUSTIN, [facility] 08/16/2014 03541 TX/PRO/DX INJ NEW DRUG MENDELON FLACO FAUSTIN, [facility] 08/16/2014 93057 EMERGENCY DEPT VISIT FLACO FAUSTIN [facility] [place] 08/16/2014 G0378 HOSPITAL OBSERVATION PER HR FLACO FAUSTIN, [facility] 08/16/2014 25409 THER/PROPH/DIAG IV INF MENDELON FLACO FAUSTIN, [facility] 08/17/2014 36096 TX/PRO/DX INJ NEW DRUG PRORATION CLERKEDUARDO SAM MD, [facility] 08/17/2014 J0696 CEFTRIAXONE SODIUM INJECTION FLACO FAUSTIN, [facility] 08/17/2014 J2930 METHYLPREDNISOLONE INJECTION FLACO FAUSTIN, [facility] 08/17/2014 J3475 MAG INJECTION FLACO FAUSTIN, [facility] 08/17/2014 J7050 NS SOLUTION 250 CC INFUSION FLACO FAUSTIN, [facility] 08/17/2014 Results Test Result Range CBC - 03/19/14 09:45 Eos # 0.14 x10^3 0-0.5 Eos % 1.0 % 0-4 HCT 45.3 % 37.0-47.0 HGB 15.7 G/DL 12.0-16.0 Lymph 3.0 Lymph # 0.51 x10^3 1.0-4.0 Lymph % 3.6 % 20-50 MCH 30.4 PG 27.0-31.0 MCHC 34.7 G/DL 32.0-36.0 MCV 87.8 FL 81-99 Stewart 3.0 Stewart # 0.14 x10^3 0.0-0.8 Stewart % 1.0 % 1.0-9.0 MPV 9.6 FL [...] 34.6 G/DL 32.0-36.0 MCV 87.3 FL 81-99 Stewart # 0.60 x10^3 0.0-0.8 Stewart % 5.6 % 1.0-9.0 MPV 9.7 FL [...] 33.5 G/DL 32.0-36.0 MCV 86.6 FL 81-99 Stewart # 0.16 x10^3 0.0-0.8 Stewart % 1.0 % 1.0-9.0 MPV 9.3 FL [...] 34.1 G/DL 32.0-36.0 MCV 86.2 FL 81-99 Stewart # 0.13 x10^3 0.0-0.8 Stewart % 0.5 % 1.0-9.0 MPV 9.5 FL [...] 33.1 G/DL 32.0-36.0 MCV 88.8 FL 81-99 Stewart 3.0 Stewart # 0.84 x10^3 0.0-0.8 Stewart % 2.6 % 1.0-9.0 MPV 9.7 FL [...] Status Pt. Type Provider Facility Loc./Unit Complaint [id number] 05/30/2015 17:07:00 06/01/2015 20:45:00 DIS Inpatient JIMMY FAUSTIN, [facility] NS1 [id number] 12/09/2014 19:02:00 12/10/2014 00:42:00 DIS Inpatient JIMMY FAUSTIN, [facility] NS1 [id number] 08/16/2014 22:40:00 08/18/2014 13:39:00 DIS Outpatient FLACO FAUSTIN, PATRICK [facility] NS1 [id number] 03/20/2014 14:57:00 03/21/2014 14:00:00 DIS Inpatient ISAIAH GRAJEDA MD, [facility] NS1 [id number] 08/07/2013 16:23:00 08/07/2013 18:04:00 DIS Emergency ASHVIN FAUSTIN, [facility] ER
--- NOTE | 2016-10-02 03:10 | NUR ---
report called report to zoe león
--- NOTE | 2016-10-02 03:22 | NUR ---
transfer to rm 160 pt is taken by w/c with o2 to rm 160.
[2016-10-02] MEDS: ALBUTEROL INH.SOLN. 2.5mg/3ml (0.083%) Neb. AEROSOL PRN ×2 (04:00→07:57)
[2016-10-02] MEDS: NORMAL SALINE 1,000 ML IV SCH ×3 (04:02→22:15)
[2016-10-02] MEDS: ENOXAPARIN 40 MG/0.4 ML INJECTION SQ SCH ×2 (04:03→04:26)
--- NOTE | 2016-10-02 04:27 | HPPDOC ---
IVORY MORAN MD 10/02/16 0422: HPI - Adult Date DATE: 10/02/16 TIME: 05:19 General Chief Complaint: shortness of breath History of Present Illness This is a 46-year-old female with a history of asthma. The patient had worsening of her breathing over the past 36 hours. Addisons at home were not helping. Patient presents to the emergency department were aggressive pulmonary therapy was initiated. This included Solu-Medrol, albuterol breathing treatments. Patients chest x-ray demonstrated no acute infiltrate. Lab work is reassuring otherwise. Patient is to be admitted for further assessment of her ongoing exacerbation of asthma. Past Medical History Past Medical History asthma Surgical History Patient's Surgical History: c section Current Medications Home Meds Reported Medications Fluticasone/Vilanterol (Breo Ellipta 100-25 Mcg INH) 1 Each Blst.w.dev, 1 PUFF PO DAILY, #60 10/02/16 Allergies: Coded Allergies: No Known Allergies (Unverified , 10/01/16) Family History Family History: mother and father alive and in good health, no signficant pulmonary disease Social History Smoking Status: Former smoker Does patient use chewing tobac: No Substance Use Type: does not use Alcohol Intake: none Marital Status: Single Sexuality: male partner Housing: house Household Members: significant other Current Occupational Status: unemployed Advance Directives: No DPOA for Healthcare Only Review of Systems All Other Systems All Other Systems: Reviewed (remainder of 10-point ROS Neg.) Comments No headache, no change in vision, no ear pain, no congestion, no sore throat, no neck or jaw pain, no chest pain, cough is productive of colored sputum, has had fever chills and sweats of the past 12 hours, is short of breath, his wheezing, denies any abdominal pain, no nausea or vomiting, no change in bowel movement, no skin rashes, no focal neurological complaints, 10 point review of systems is otherwise negative except for described above Physical Exam General General Nourishment: well nourished, well developed, obese, adult General Body Habitus: well groomed Vital Signs Vital Signs Date Time Temp Pulse Resp B/P Pulse Ox O2 Delivery O2 Flow Rate FiO2 10/02/16 04:08 103 10/02/16 04:03 Nasal Cannula 4.00 10/02/16 04:00 22 95 10/02/16 03:15 132/75 10/01/16 22:52 100.8 Height (Feet): 5 Height (Inches): 7.00 Telemetry Rhythm: Sinus Rhythm Eyes Brief: FOUND: EOMI, NOT FOUND: scleral icterus Comments wheezes in all lung lopes Cardiovascular (brief) Cardiac Brief: FOUND: regular rate, regular rhythm, NOT FOUND: click, gallop, murmur, other, pedal edema, peripheral edema, rub Abdomen (brief) Abdominal Brief: FOUND: soft, tender Integumentary (brief) Integumentary Brief: FOUND: dry, pink, warm Neurologic RN Documented GCS Eye Opening: Verbal: Motor: Total: Psychiatric (brief) FOUND: alert, attentive, normal affect, oriented Laboratory Laboratory Tests Test 10/01/16 23:47 10/02/16 01:42 Influenza Type A Antigen Negative Influenza Type B Antigen Negative White Blood Count 17.5T/MM3 Red Blood Count 5.30M/MM3 Hemoglobin 15.4GM/DL Hematocrit 46.2% Mean Corpuscular Volume 87.2UM3 Mean Corpuscular Hemoglobin 29.1UUG Mean Corpuscular Hemoglobin Concent 33.3GM/DL RDW Standard Deviation 45.1FL Platelet Count 344T/MM3 Mean Platelet Volume 9.7UM3 Immature Granulocyte % (Auto) % Neutrophils (%) (Auto) % Lymphocytes (%) (Auto) % Monocytes (%) (Auto) % Eosinophils (%) (Auto) % Basophils (%) (Auto) % Absolute Immature Granulocyte (auto T/MM3 Absolute Neutrophils (auto) T/MM3 Absolute Lymphocytes (auto) T/MM3 Absolute Monocytes (auto) T/MM3 Absolute Eosinophils (auto) T/MM3 Absolute Basophils (auto) T/MM3 Neutrophils % (Manual) 92.0% Band Neutrophils % 3.0% Lymphocytes % (Manual) 5.0% Absolute Neutrophils (Manual) 16.1T/MM3 Band Neutrophils # 0.5T/MM3 Lymphocytes # (Manual) 0.9T/MM3 Red Cell Morphology Comment Normal Turbidity < 20 Sodium Level 136MEQ/L Potassium Level 3.7MEQ/L Chloride Level 100MEQ/L Carbon Dioxide Level 23MEQ/L Anion Gap 13MEQ/L Blood Urea Nitrogen 7.0MG/DL Creatinine 0.6MG/DL Glomerular Filtration Rate Calc 109 BUN/Creatinine Ratio 12RATIO Glucose Level 183MG/DL Calculated Osmolality 265MOSM/KG Calcium Level 9.8MG/DL Total Bilirubin 1.60MG/DL Icterus Index < 2 Aspartate Amino Transf (AST/SGOT) 105U/L Alanine Aminotransferase (ALT/SGPT) 164U/L Alkaline Phosphatase 136U/L Total Protein 8.2G/DL Albumin 4.3G/DL Globulin 3.9G/DL Albumin/Globulin Ratio 1.1RATIO Chemistry Specimen Hemolysis 22 Radiology CXR demonstrates no acute disease process. Sepsis Diagnostic Criteria Sepsis SIRS Criteria: Pulse >= 90 beats/min, WBC >=12,000 or <=4,000 Severe Sepsis None Seen Assessment & Plan Assessment 1. Exacerbation of asthma acute present on admission: IV Solu-Medrol, IV fluids , albuterol when necessary, DuoNeb when necessary, reassess in the morning. A very good point for the patient is that she has stopped smoking 3 years ago. 2. Bronchitis acute present on admission: Patient has significant sputum production, will start Rocephin and Zithromax, transition to oral antibiotics rapidly 3. Sepsis acute present admission: Patient has a tachycardic rhythm, cytosis, and bands are identified, no current fever identified, IV fluids, repeat sepsis markers in the morning 4. Hypoxic respiratory failure acute present admission: Secondary to #1 #2, patient will probably rapidly improve over the next 24 hours, unlikely that she ll need to go home on oxygen 5. Transaminitis acute present on admission: Respiratory minimal at this time. Repeat labs in the morning. If continued elevated consider hepatitis panel, 6. DVT prophylaxis: SCD and Lovenox 7. Gastric prophylaxis: PPI 8. Hyperglycemia acute present on admission: Probably related to steroids, if continued elevated will check an A1c DVT Prophylaxis: SCD'S Code Status Full Code Hospital Course Summary Disclaimer The hospital course summary below is not to be considered part of the above Progress Note. ABRIL ANGLIN MD 10/02/16 1206: HPI - Adult General Chief Complaint: dyspnea History of Present Illness Rita is a 46-year-old female with history of asthma since childhood. She was last hospitalized 8 months ago and has never required intubation. She does not know of any clear triggers for respiratory symptoms. She was well controlled on daily inhaled steroid/LABA until 2 days ago when she developed nasal congestion with rhinorrhea followed by fever sensation yesterday with increased wheezing and dyspnea. She tried several breathing treatments at home which offered little relief before presenting to the emergency room in [place] and was transferred to the [place] emergency room. She's had associated cough with yellowish sputum and tightness in her chest. She denied sore throat. Symptoms have improved significantly overnight following initiation of steroids and additional breathing treatments. Past history, social history, family history, and review of systems as previously described by Dr. Moran with addition of patient previously having a bilateral tubal ligation. Menses are regular with last period was one week ago. Primary care provider is Keke Bobby in [place]. Past Medical History Current Medications Home Meds Reported Medications Fluticasone/Vilanterol (Breo Ellipta 100-25 Mcg INH) 1 Each Blst.w.dev, 1 PUFF PO DAILY, #60 10/02/16 Allergies: Coded Allergies: No Known Allergies (Unverified , 10/01/16) Sepsis Diagnostic Criteria Sepsis SIRS Criteria: Temp<=96.8 or >=100.4 Severe Sepsis SpO2 <90% or ventilated Assessment & Plan Assessment Dr. Moran's history reviewed, patient interviewed and examined. Additions as follow: EXAM General-96.1, 112/77/95% on 3 L O2 (88% on oxygen twice since arrival). Resting comfortably when seen, speaking in full sentences, alert, cooperative HEENT-PERRL, EOMI, conjunctiva clear, sclera anicteric, conjugate gaze, oropharynx clear, facial structure symmetric, neck supple and without adenopathy Lungs-respirations nonlabored at this time, diffuse expiratory wheezing throughout anterior and posterior lung lopes with minimal inspiratory wheezing , fair air flow Cardiac-regular rhythm, S1-S2 Abd-soft, nontender, without palpable mass, bowel sounds present Ext-without edema Skin-without rash Neuro-cranial nerves II through XII intact, motor tone and power normal, no tremor, sensation intact to light touch 4 extremities Psych-calm, cooperative, euthymic IMPRESSION: Acute hypoxic respiratory failure Asthma exacerbation "Severe sepsis" Chronic asthma Leukocytosis URI/bronchitis Hyperglycemia Abnormal liver enzymes Clinically improving with standard treatment for asthma exacerbation. Continue Solu-Medrol at 62.5 mg every 6 hours and aggressive breathing treatments. Severe sepsis criteria are present although attributable to URI/asthma exacerbation. Sputum culture pending, influenza swab negative. Continue azithromycin orally. Given clinical improvement and absence of findings on chest x-ray do not believe blood cultures or lactic acid indicated at this time. Fasting blood sugar elevated, monitor after meals and check A1c. Persistent elevation of liver enzymes, may be due to preceding hypoxia or fatty liver but will obtain hepatitis panel to exclude acute infection. Plan/Intensity of Service Chest x-ray reviewed by myself-unremarkable. Laboratory data reviewed. Dr. Moran and Dr. Verma's notes reviewed. Hospital Course Summary Hospital Course Summary 10/02 Admitted with asthma exacerbation, treatment with Solu-Medrol and DuoNeb initiated in the emergency room. Continue Solu-Medrol at 62.5 mg every 6 hours and aggressive breathing treatments. Severe sepsis criteria are present although attributable to URI/asthma. Sputum culture pending, influenza swab negative. Continue azithromycin orally. Given clinical improvement and absence of findings on chest x-ray do not believe blood cultures or lactic acid indicated at this time. Fasting blood sugar elevated, monitor after meals and check A1c. Persistent elevation of liver enzymes, may be due to preceding hypoxia or fatty liver but will obtain hepatitis panel to exclude acute infection. IVORY MORAN MD Oct 02, 2016 04:22 ABRIL ANGLIN MD Oct 02, 2016 12:06
--- NOTE | 2016-10-02 04:28 | NUR ---
ADMIT 0322-PT WAS ADMIT TO RM 160 PER W/C WITH 02 ON 3 L. PT STATES SHE IS VERY TRIED. DENIES SOA, OR CHEST PAIN. NOTED HER FINGERS WERE BLUE DEEP RED COLOR. PT STATES THIS IS NOT NORMAL FOR HER. DR MORAN SEEN PT PER TELE DR FOR ADMIT. IVF STARTED AND MEDICATIONS GIVEN. PT REFUSED LOVENOX 40 MG. REVIEWED WITH PT WHAT LOVENOX WAS FOR. PT STATES MAYBE LATER. ORIENTED TO RM AND CALL LIGHT. PT DENIES NEEDS AT THIS TIME.
[2016-10-02 04:57] LABS: HCT - HEMATOCRIT 47.3 % (36-46); HGB - HEMOGLOBIN 15.6 GM/DL (12-16); MEAN CORPUSCULAR HGB 28.6 UUG (26-34); MEAN CORPUSCULAR VOLUME 86.6 UM3 (80-100); MEAN PLATELET VOLUME 10.1 UM3 (9.4-12.4); RED BLOOD COUNT 5.46 M/MM3 (4.00-5.20); WBC - WHITE BLOOD COUNT 16.7 T/MM3 (4.5-11.0)
[2016-10-02 05:15] LABS: ALBUMIN 4.5 G/DL (3.5-5.0); ALBUMIN/GLOBULIN RATIO 1.2 RATIO (1.1-2.2); ALKALINE PHOSPHATASE 146 U/L (38-126); ALT (SGPT) 161 U/L (9-52); ANION GAP 10 MEQ/L (5-15); AST (SGOT) 89 U/L (14-36); BUN/CREATININE RATIO 13 RATIO (6-26); CALCIUM 10.1 MG/DL (8.4-10.2); CHLORIDE 100 MEQ/L (98-107); CO2 - CARBON DIOXIDE 25 MEQ/L (22-30); CREATININE 0.6 MG/DL (0.7-1.2); GLOMERULAR FILTRATION RATE 109; GLUCOSE 216 MG/DL (65-110); POTASSIUM 3.9 MEQ/L (3.6-5); SODIUM 135 MEQ/L (134-144); TOTAL PROTEIN 8.4 G/DL (6.3-8.2)
[2016-10-02 06:21] LABS: BAND NEUTROPHILS # 2.7 T/MM3; LYMPHOCYTES # (MANUAL) 0.3 T/MM3 (1-4.8); MONOCYTES # (MANUAL) 0.2 T/MM3 (0-0.8); NEUTROPHILS #(MANUAL)-ABSOLUTE 13.5 T/MM3 (1.8-7.7); TOTAL CELLS COUNTED 100 %
[2016-10-02] MEDS ORDERED: FLUT1AER PO (06:34)
--- NOTE | 2016-10-02 07:57 | DI ---
INDICATION: ITS.REASON: cough shortness of air wheezing PROCEDURE: CHEST 2-VIEWS UPRIGHT (PA \T\ LAT) Encounter: Initial COMPARISON: None FINDINGS: The lungs are clear without evidence of focal abnormal airspace opacity. There is no pleural effusion or pneumothorax. The heart size, mediastinal contours and pulmonary vascularity are within normal limits. There is no significant skeletal abnormality. IMPRESSION: No acute cardiopulmonary disease. .
[2016-10-02] MEDS ORDERED: ENOXAPARIN 40 MG/0.4 ML INJECTION SQ SCH (09:00)
[2016-10-02] MEDS ORDERED: CEFTRIAXONE I.V. (ER USE ONLY) 1 G in NORMAL SALINE 100 ML IV ONE (09:00)
[2016-10-02] MEDS ORDERED: AZITHROMYCIN 500 MG in NORMAL SALINE 250 ML IV SCH (09:00)
[2016-10-02] MEDS ORDERED: FLUTICASONE/VILANTEROL 100/25mcg INHALER ORAL INH SCH (09:00)
[2016-10-02] MEDS ORDERED: PANTOPRAZOLE 40mg INJECTION IV ONE (09:00)
--- NOTE | 2016-10-02 09:02 | NUR ---
MEDICATION pt refused to take the lovenox. charted under the emar.
--- NOTE | 2016-10-02 12:02 | NUR ---
KATY CM VISITED PT. CM EXPLAINED ROLE AND PROVIDED CONTACT INFORMATION. PT PLANS TO RETURN HOME POST HOSPITAL STAY. PT DENIES NEEDS. PT IS AWARE TO CONTACT CM IF NEEDS ARISE.
[2016-10-02] MEDS ORDERED: AZITHROMYCIN 500 MG TABLET PO SCH (12:15)
[2016-10-02] MEDS: INSULIN LISPRO 100 UNIT/ML SQ PRN ×2 (14:41→20:16)
--- NOTE | 2016-10-02 16:58 | NUR ---
STATUS pt is alert and oriented X3. pt has denied pain. pt gets up with 1 as a stand by assist. pt is on O2-3L NC. pt has slept quite a bit this shift. pt has visited with company. pt sits up in bed to eat meals. pt is resting in bed call light within reach. will continue to monitor pt.
[2016-10-02] MEDS ORDERED: FAMOTIDINE 20 MG TABLET PO SCH (21:00)
--- NOTE | 2016-10-02 21:10 | NUR ---
Status: Pt called this nurse in room to discuss Pt wanting to leave. Pt states she has a lot to do tomorrow and that Pt's daughter has a basketball tournament she has to go to. Pt on 2L of O2 at this time. Pt advised she cannot go at this time because she is requiring Oxygen. Pt daughter present in room. Pt is upset that she cannot go. Advised Pt that we will try to wean Pt off of oxygen tonlashawn and will see Pt in person tomorrow morning and possible discharging Pt then if all goes well in the night. Pt is irritated at the answer. Encouraged Pt to relax and try to get some sleep. Pt does not reply. Daughter left and brought supper back to Pt.
--- NOTE | 2016-10-02 22:00 | NUR ---
Status: Pt up ambulating in hallway with no oxygen on. Pt does not want to wear it. Checked Pt's O2 sat when Pt back to room. O2 is in the low 90's. Pt on room air. Will continue to monitor.
[2016-10-02] MEDS ORDERED: LORAZEPAM 1 MG TABLET PO PRN (23:45)
--- NOTE | 2016-10-03 | NUR ---
Status/AMA: Pt pushes call light and states that she wants to go home. Pt is tearful and says she is "home sick" and she's always been like this. She states she cannot stay here any longer because she "has too much to do tomorrow." Pt is wondering if the can dismiss her now. Explained to Pt that she needs to stay to continue getting breathing tx's, antibiotics, IV fluids, and possible need of Oxygen due to Hypoxia. Pt was weaned to room air per Pt request earlier in evening due to Pt wanting to go home. Pt is on room air at this time. O2 sat's checked and in the mid 90's. Pt states, "see, I'm fine." Sent Dr. Fish a tigertext and received telephone call and discussed Pt wanting to leave. Dr. Fish encouraged this nurse to get Pt to stay. Dr. Fish also states he will leave a note for Dr. Cheung to see the Pt first thing in the morning to try to dismiss if feels she is good to discharge. Conveyed this information to Pt and she states she can't stay here any longer. Order received from Dr. Fish for the Prednisone 40mg PO one time dose now. Addendum: 10/03/16 at 0107 by EDDA BOURGEOIS RN Oxygen: Pt states that her family member/father has oxygen tanks at home and she states she "can use that if I need to have oxygen." Educated Pt that is not acceptable to use another Person's oxygen.
[2016-10-03 00:01] VITALS: BP 142/80; PULSE 109; RESP 16; TEMP 96.8; O2SAT 92
[2016-10-03] MEDS ORDERED: PredniSONE 20 MG TABLET PO ONE (00:30)
--- NOTE | 2016-10-03 00:32 | NUR ---
AMA: AMA: AMA form completed with Pt. Reviewed risks of Pt leaving Against medical advice. Notified Pt that insurance will not cover Pt's stay here in the hospital if she leaves AMA. Pt verbalized understanding and still continues to state "I have to leave. I am fine." Pt states that she has "too much to do tomorrow." IV fluids and IV site discontinued and gauze dressing applied. Ambulated Pt to front of hospital at ER entrance at 0032 where she met her daughter. Pt states that her daughter is having her son evaluated in the ER. Pt daughter sitting at registration desk at ER holding Pt's grandson.
[2016-10-03] MEDS ORDERED: AZITHROMYCIN 500 MG in NORMAL SALINE 250 ML IV SCH (05:00)
--- NOTE | 2016-10-03 13:03 | NUR ---
CM CM SPOKE WITH PT AND SHE STATES THAT SHE IS DOING OKAY. SHE IS NOT HAVING ANY ISSUES BREATHING. CM REVIEWED THE IMPORTANCE OF FOLLOWING UP WITH HER PRIMARY DR WHO SHE STATES IS JOSH MARQUEZ. PT PLANS TO MAKE AN APPOINTMENT TODAY. CM REVIEWED THE CONCERN OF PT LEAVING AMA AND NOT GETTING IV ANTIBIOTICS. PT IS AWARE TO COME TO [facility] IF SHE HAS NEEDS. PT IS ALSO AWARE TO CONTACT CM IF NEEDS ARISE.
--- NOTE | 2016-10-03 18:01 | DSPDOC ---
General Date Date DATE: 10/03/16 TIME: 17:54 Attending Physician Bri Cheung MD Admitting Physician Bri Cheung MD Consulting Physician Admitting Diagnosis asthma exacerbation Discharge Diagnosis 1. Acute asthma exacerbation 2. Bronchitis 3. Acute hypoxic respiratory failure 4. Abnormal liver enzymes 5. Hyperglycemia 6. Leukocytosis Laboratory Laboratory Tests Test 10/02/16 14:31 10/02/16 19:46 Glucometer 230mg/dL (65-110) 247mg/dL (65-110) White count on admission 17.5 with hemoglobin 15.4. Bilirubin on admission 1.6, AST 105, ALT 164, alkaline phosphatase 136; minor changes in liver enzymes on 10/02 although all remained abnormal Microbiology Influenza swab negative for influenza A and influenza B Radiology Chest x-ray with no significant cardiopulmonary disease on 10/01 History of Present Illness Rita is a 46-year-old female with history of asthma since childhood. She was last hospitalized 8 months ago and has never required intubation. She does not know of any clear triggers for respiratory symptoms. She was well controlled on daily inhaled steroid/LABA until 2 days ago when she developed nasal congestion with rhinorrhea followed by fever sensation yesterday with increased wheezing and dyspnea. She tried several breathing treatments at home which offered little relief before presenting to the emergency room in [place] and was transferred to the [place] emergency room. She's had associated cough with yellowish sputum and tightness in her chest. She denied sore throat. Symptoms have improved significantly overnight following initiation of steroids and additional breathing treatments. Past history, social history, family history, and review of systems as previously described by Dr. Rodriguez with addition of patient previously having a bilateral tubal ligation. Menses are regular with last period was one week ago. Primary care provider is Keke Bobby in [place]. Hospital Course 10/02 Admitted with asthma exacerbation, treatment with Solu-Medrol and DuoNeb initiated in the emergency room. Continue Solu-Medrol at 62.5 mg every 6 hours and aggressive breathing treatments. Severe sepsis criteria are present although attributable to URI/asthma. Sputum culture pending, influenza swab negative. Continue azithromycin orally. Given clinical improvement and absence of findings on chest x-ray do not believe blood cultures or lactic acid indicated at this time. Fasting blood sugar elevated, monitor after meals and check A1c. Persistent elevation of liver enzymes, may be due to preceding hypoxia or fatty liver but will obtain hepatitis panel to exclude acute infection. 10/03/16 Rita left hospital AGAINST MEDICAL ADVICE early this morning. She received 40 mg prednisone prior to discharge after nursing contacted covering medical staff of patient's intent. Oxygen saturation on room air was 92-95% for several hours prior to discharge. Dr. Bobby office was notified this morning of patient's discharge to arrange follow-up and additional medications as Rita indicated she was out of rescue medication prior to hospital stay. Problems: Code Status Full Code Home Meds Reported Medications Fluticasone/Vilanterol (Breo Ellipta 100-25 Mcg INH) 1 Each Blst.w.dev, 1 PUFF PO DAILY, #60 10/02/16 Face to Face Encounter Patient left shortly after midnight-not seen on the date of discharge Discharge Disposition Home/AMA Copies To 1: KEKE BOBBY MD, ROBERTA L MD Oct 03, 2016 17:59
== END 2016-10-03 00:32 | disposition left against medical advice (07) | DRG 202 ==
LOC: ED 22:52 → EDHOLD 10-02 02:14 → MED 10-02 03:22
PROVIDERS: ADMIT Emergency Medicine; ATTEND Internal Medicine
DX: J45.901 Unspecified asthma with (acute) exacerbation (principal); J96.01 Acute respiratory failure with hypoxia; J20.9 Acute bronchitis, unspecified; R74.8 Abnormal levels of other serum enzymes; D72.829 Elevated white blood cell count, unspecified; R73.9 Hyperglycemia, unspecified; Z87.891 Personal history of nicotine dependence
CPT/HCPCS: 36415; 80053; 82948; 85025; 87400; 94640